=== PATIENT | male | born 1950 | race Caucasian/White ===

== ENCOUNTER 2024-02-12 18:34 | Emergency (ER) | payer MEDICARE, OTHER | END 2024-02-13 00:09 | disposition home or self-care (01) | LOC: ERS 18:34 | DX: S32.019A Unspecified fracture of first lumbar vertebra, initial encounter for closed fracture (principal); S32.039A Unspecified fracture of third lumbar vertebra, initial encounter for closed fracture; Z46.89 Encounter for fitting and adjustment of other specified devices; X58.XXXA Exposure to other specified factors, initial encounter | CPT/HCPCS: 99282 ==